=== PATIENT | female | born 1935 | race Caucasian/White ===

== ENCOUNTER 2021-08-06 10:49 | Day surgery (SDC) | payer MEDICARE ==
[~2021-08-06] VITALS: Ht 157.5 cm; Wt 74.7 kg
[2021-08-06] VITALS (12 sets, daily range): BP systolic 129–176; BP diastolic 49–86
[~2021-08-06 10:49] MED LIST: FISH OIL; FLAX OIL; IBUP-24 PO; METOPROLOL; MOVE FREE; MULTIVIT; VIT E
[2021-08-06] MEDS ORDERED: nitroGLYCERIN 0.4mg SUBLingual tab SL PRN ×2 (11:20→14:10)
[2021-08-06] MEDS ORDERED: LORazepam 0.5 MG tablet PO PRN (11:20)
[2021-08-06] MEDS ORDERED: diphenhydrAMINE 25mg capsule PO PRN (11:20)
[2021-08-06] MEDS ORDERED: ASPI-611 PO (11:28)
[2021-08-06] MEDS ORDERED: MULT-1085 PO (11:28)
[2021-08-06] MEDS ORDERED: METO-395 PO (11:29)
[2021-08-06] MEDS ORDERED: FEXO-25 PO (11:30)
[2021-08-06] MEDS ORDERED: OSC500T PO (11:31)
[2021-08-06] MEDS ORDERED: PREDNISONE 20 MG PO (11:37)
[2021-08-06 11:48] LABS: BASOPHILS % (AUTO) 0.2 % (0-1); EOSINOPHILS % (AUTO) 0 % (0-6); HEMATOCRIT 39.1 % (35.0-45.0); HEMOGLOBIN 13.6 g/dl (12.0-16.0); LYMPHOCYTES # (AUTO) 0.9 X10'3 (1.1-4.8); LYMPHOCYTES % (AUTO) 7.6 % (21-51); MEAN CORPUSCULAR HEMOGLOBIN 32.9 PG (27.0-31.0); MEAN CORPUSCULAR HGB CONC 34.9 g/dL (33.0-36.5); MEAN CORPUSCULAR VOLUME 94.3 FL (78-98); MEAN PLATELET VOLUME 9.4 FL (7.4-10.4); MONOCYTES # (AUTO) 0.4 X10'3 (0-0.9); MONOCYTES % (AUTO) 3.3 % (2-12); NEUTROPHILS # (AUTO) 10.8 X10'3 (1.8-7.7); NEUTROPHILS % (AUTO) 88.9 % (42-75); PLATELET COUNT 206 X10'3 (140-440); RED BLOOD COUNT 4.15 X10'6 (4.20-5.60); RED CELL DISTRIBUTION WIDTH 12.2 % (11.5-14.5); WHITE BLOOD COUNT 12.1 X10'3 (4.5-11.0)
[2021-08-06 12:01] LABS: ALBUMIN 3.4 G/DL (3.4-5.0); ANION GAP 13 (8-16); BLOOD UREA NITROGEN 19 MG/DL (7-18); BUN/CREATININE RATIO 18.1 (6.6-38.0); CHLORIDE 104 MMOL/L (99-107); CREATININE 1.05 MG/DL (0.40-0.90); GLUCOSE 145 MG/DL (70-104); POTASSIUM 4.1 MMOL/L (3.5-5.1); SODIUM 139 MMOL/L (135-145); TOTAL CARBON DIOXIDE 22.5 MMOL/L (24-32); eGFR 50 ML/MIN
[2021-08-06 12:02] LABS: PARTIAL THROMBOPLASTIN TIME 23 SECONDS (22-32)
[2021-08-06] MEDS ORDERED: midazolam 1 mg/ML 2ml injection ONE (12:29)
[2021-08-06] MEDS ORDERED: fentaNYL/PF 50MCG/1 ML 2ML syringe ONE (12:30)
[2021-08-06] MEDS ORDERED: iohexol 350 MG/ML 50ML vial IV ONE ×3 (12:30→13:31)
[2021-08-06] MEDS ORDERED: LIDOcaine 1% (10mg/ml)w/preservative injection 20ml MDV ONE (12:30)
[2021-08-06] MEDS ORDERED: iohexol 350MG/ML 100ml bottle IV ONE (12:30)
[2021-08-06] MEDS ORDERED: methylPREDNISolone sod succ 125mg/2ml vial IV ONE (13:00)
[2021-08-06] MEDS ORDERED: normal saline 1000ml 1,000 ML IV SCH (14:10)
[2021-08-06] MEDS ORDERED: HYDROcodone/acetaminophen 5mg/325mg tablet PO PRN (14:10)
[2021-08-06] MEDS ORDERED: HYDROcodone/acetaminophen 10/325mg tab PO PRN (14:10)
[2021-08-06] MEDS ORDERED: proCHLORperazine 10 MG/2 ml inj IV PRN (14:10)
[2021-08-06] MEDS ORDERED: OXAZEpam 15mg capsule PO PRN (14:10)
[2021-08-06] MEDS ORDERED: ondansetron/PF 4mg/2ml inj IV PRN (14:10)
== END 2021-08-06 20:25 | disposition home or self-care (01) ==
LOC: SSTAY O 10:49
PROVIDERS: ATTEND Internal Medicine Cardiovascular Disease
DX: R94.39 Abnormal result of other cardiovascular function study (principal); I25.810 Atherosclerosis of coronary artery bypass graft(s) without angina pectoris; I25.82 Chronic total occlusion of coronary artery; I10 Essential (primary) hypertension; E78.5 Hyperlipidemia, unspecified; J44.9 Chronic obstructive pulmonary disease, unspecified; K21.9 Gastro-esophageal reflux disease without esophagitis; Z87.891 Personal history of nicotine dependence; Z79.82 Long term (current) use of aspirin; Z79.899 Other long term (current) drug therapy; Z79.01 Long term (current) use of anticoagulants; Z91.013 Allergy to seafood; Z88.2 Allergy status to sulfonamides; Z91.012 Allergy to eggs
CPT/HCPCS: 36415; 71046; 80048; 85025; 85610; 85730; 93005; 93459; 99152; 99153; C1760; C1769; J1644; J2001; J2250; J2930; J3010; Q0163; Q9967; 75630; 93458; A4620; A6258

== ENCOUNTER 2022-05-18 08:52 | Inpatient (IN) | payer MEDICARE ==
[2022-05-13 16:42] LABS: BASOPHILS % (AUTO) 0.6 % (0-1); EOSINOPHILS # (AUTO) 0.2 X10'3 (0-0.9); EOSINOPHILS % (AUTO) 3.3 % (0-6); LYMPHOCYTES # (AUTO) 1.9 X10'3 (1.1-4.8); MEAN CORPUSCULAR HEMOGLOBIN 32.9 PG (27.0-31.0); MEAN CORPUSCULAR HGB CONC 33.9 g/dL (33.0-36.5); MEAN CORPUSCULAR VOLUME 96.8 FL (78-98); MEAN PLATELET VOLUME 8.4 FL (7.4-10.4); MONOCYTES # (AUTO) 0.7 X10'3 (0-0.9); MONOCYTES % (AUTO) 10.3 % (2-12); NEUTROPHILS % (AUTO) 57.8 % (42-75); PRE OP HEMATOCRIT 40.4 % (35.0-45.0); PRE OP HEMOGLOBIN 13.7 g/dL (12.0-16.0); PRE OP PLATELET COUNT 229 X10'3 (140-440); RED BLOOD COUNT 4.17 X10'6 (4.20-5.60); RED CELL DISTRIBUTION WIDTH 13.5 % (11.5-14.5)
[2022-05-13 16:58] LABS: ALBUMIN 3.8 G/DL (3.4-5.0); BLOOD UREA NITROGEN 24 MG/DL (7-18); BUN/CREATININE RATIO 28.9 (6.6-38.0); CHLORIDE 100 MMOL/L (99-107); CREATININE 0.83 MG/DL (0.40-0.90); PRE OP ALT 48 U/L (30-65); PRE OP ANION GAP 13 (8-16); PRE OP AST 33 U/L (10-37); PRE OP BILIRUB, TOTAL 0.5 MG/DL (0.0-1.0); PRE OP GLUCOSE 116 MG/DL (70-104); PRE OP POTASSIUM 4.2 MMOL/L (3.4-5.1); PRE OP SODIUM 138 MMOL/L (135-145); TOTAL CARBON DIOXIDE 24.7 MMOL/L (24-32); TOTAL PROTEIN 7.6 G/DL (6.4-8.2); eGFR 65 ML/MIN
[2022-05-13 16:59] LABS: ALKALINE PHOSPHATASE 50 IU/L (46-116)
[2022-05-13 17:00] LABS: PRE OP PROTIME 10.3 SECONDS (9.0-12.0)
[2022-05-18] VITALS (23 sets, daily range): BP systolic 121–169; BP diastolic 51–88
[~2022-05-18] VITALS: Ht 157.5 cm; Wt 69.2 kg
[~2022-05-18 08:52] MED LIST changes: +ACET-1025 PO; +ASCO-283 PO; +ASPI-611 PO; +CLOP75TA34 PO; +DOCUMENT DATE & TIME OF BETA-BLOCKER PO ONE; +FEXO-25 PO; -FISH OIL; -FLAX OIL; -IBUP-24 PO; +METO-395 PO; -METOPROLOL; -MOVE FREE; +MULT-1085 PO; -MULTIVIT; +OSC500T PO; +ROSU10TA28 PO; -VIT E; +ceFAZolin inj. 2,000 MG in dextrose 5%-water 100 ML IV ONE; +famotidine 20mg tablet PO ONE; +ringers solution, lacted 1,000 ML IV SCH; +tranexamic acid inj. 1,000 MG in normal saline 100ml IV soln 90 ML IV ONE; +vancomycin/NS 1 GM in NS 250 ML IV ONE
[2022-05-18] MEDS ORDERED: ketorolac trometh. 30mg/ml inj. ONE (10:50)
[2022-05-18] MEDS ORDERED: ROPIVAcaine 0.5% (5mg/ml) 30ml vial ONE ×3 (10:51→13:41)
[2022-05-18] MEDS ORDERED: cloNIDine hcl/PF 100mcg/ml inj ONE (10:51)
[2022-05-18] MEDS ORDERED: fentaNYL/PF 50MCG/1 ML 2ML syringe ONE ×2 (10:57→12:15)
[2022-05-18] MEDS ORDERED: vancomycin 1,000mg inj ONE (11:10)
[2022-05-18] MEDS ORDERED: sevoflurane 250ml liquid IH ONE (11:34)
[2022-05-18] MEDS ORDERED: morphine 2 MG/ML inj. syringe IV PRN (12:35)
[2022-05-18] MEDS ORDERED: ondansetron/PF 4mg/2ml inj IV PRN ×2 (12:35→14:40)
[2022-05-18] MEDS ORDERED: HYDROmorphone/PF 0.2 MG/ML SYRINGE IV PRN ×2 (12:35)
[2022-05-18] MEDS ORDERED: ringers solution, lacted 1,000 ML IV SCH (12:35)
[2022-05-18] MEDS ORDERED: neostigmine methylsulfate 1 MG/ML 10ml vial ONE (12:59)
[2022-05-18] MEDS ORDERED: ePHEDrine 50MG/ML INJ. ONE (12:59)
[2022-05-18] MEDS ORDERED: ROPIVAcaine 0.5% (5mg/ml) 30ml vial IJ ONE (12:59)
[2022-05-18] MEDS ORDERED: acetaminophen 1,000mg/100ml IV 100 ML IV ONE (12:59)
[2022-05-18] MEDS ORDERED: LIDOcaine 1%/PF 5ML 10 MG/ML VIAL ONE (12:59)
[2022-05-18] MEDS ORDERED: propofol inj 20 ML IV ONE (12:59)
[2022-05-18] MEDS ORDERED: ondansetron/PF 4mg/2ml inj ONE (12:59)
[2022-05-18] MEDS ORDERED: rocuronium 10mg/ml inj IV ONE ×2 (12:59)
[2022-05-18] MEDS ORDERED: glycopyrrolate 0.2mg/ml inj ONE (12:59)
[2022-05-18] MEDS ORDERED: cloNIDine hcl/PF 100mcg/ml inj IJ ONE (13:00)
[2022-05-18] MEDS ORDERED: labetalol 20mg/4ml (5mg/ml) syringe IV ONE (13:40)
[2022-05-18] MEDS ORDERED: dexamethasone sod phosphate 4mg/ml inj. ONE (13:41)
--- NOTE | 2022-05-18 14:32 | NUR ---
Received from OR via , accompanied by Anesthesiologist DR SOUZA and report given by Anesthesiolgist. MARISA. LMA. ON MASK AT 10 LITERS 20 G IV LEFT FOREARM. LEFT KNEE WRAP WITH POWDER PACK. Addendum: 05/18/22 at 1459 by Rowan Bella RN Amended: Links added. Addendum: 05/18/22 at 1514 by Rowan Bella RN PATIENT ALSO HAS DANIELLA DEVICE UNDER WRAP
[2022-05-18] MEDS ORDERED: diphenhydrAMINE 25mg capsule PO PRN ×2 (14:40)
[2022-05-18] MEDS ORDERED: naloxone 0.4 mg/ml inj IV PRN (14:40)
[2022-05-18] MEDS ORDERED: bisacodyl 10mg suppository rectal RC PRN (14:40)
[2022-05-18] MEDS ORDERED: magnesium hydroxide 30ml (MOM) UD suspension PO PRN (14:40)
[2022-05-18] MEDS ORDERED: acetaminophen 325mg tablet PO PRN (14:40)
--- NOTE | 2022-05-18 18:54 | NUR ---
Problems reprioritized. Patient report given, questions answered & plan of care reviewed with Brittany CALHOUN.
[2022-05-18] MEDS: ceFAZolin/D5W- 1GM premix 50 ML IV SCH (19:21)
[2022-05-18] MEDS: potassium Cl 20mEq in NS 1,000 ML IV SCH (20:37)
[2022-05-18] MEDS: sennosides 8.6mg tablet PO SCH (21:00)
[2022-05-18] MEDS ORDERED: vancomycin/NS 1 GM ADD-VANTAGE 250 ML IV ONE (23:00)
[2022-05-19] MEDS: ceFAZolin/D5W- 1GM premix 50 ML IV SCH
[2022-05-19 02:00] VITALS: BP 108/61
[2022-05-19] MEDS: potassium Cl 20mEq in NS 1,000 ML IV SCH ×2 (04:00→17:20)
[2022-05-19] MEDS: HYDROcodone/acetaminophen 10/325mg tab PO PRN ×2 (05:39→21:14)
[2022-05-19 06:00] VITALS: BP 110/51
[2022-05-19 06:23] LABS: BASOPHILS % (AUTO) 0 % (0-1); EOSINOPHILS % (AUTO) 0 % (0-6); HEMOGLOBIN 10.6 g/dl (12.0-16.0); LYMPHOCYTES % (AUTO) 7.2 % (21-51); MEAN CORPUSCULAR HEMOGLOBIN 33.1 PG (27.0-31.0); MEAN CORPUSCULAR HGB CONC 34.3 g/dL (33.0-36.5); MEAN CORPUSCULAR VOLUME 96.7 FL (78-98); MEAN PLATELET VOLUME 8.5 FL (7.4-10.4); MONOCYTES # (AUTO) 0.7 X10'3 (0-0.9); MONOCYTES % (AUTO) 5.1 % (2-12); NEUTROPHILS # (AUTO) 12.1 X10'3 (1.8-7.7); NEUTROPHILS % (AUTO) 87.7 % (42-75); PLATELET COUNT 192 X10'3 (140-440); RED BLOOD COUNT 3.21 X10'6 (4.20-5.60); RED CELL DISTRIBUTION WIDTH 12.9 % (11.5-14.5); WHITE BLOOD COUNT 13.8 X10'3 (4.5-11.0)
[2022-05-19 06:34] LABS: ALANINE AMINOTRANSFERASE 30 U/L (12-78); ALBUMIN 2.9 G/DL (3.4-5.0); ALBUMIN/GLOBULIN RATIO 0.9 (1.1-1.5); ALKALINE PHOSPHATASE 35 IU/L (46-116); ANION GAP 11 (8-16); ASPARTATE AMINO TRANSFERASE 23 U/L (10-37); BILIRUBIN,TOTAL 0.5 MG/DL (0.1-1.0); BLOOD UREA NITROGEN 15 MG/DL (7-18); BUN/CREATININE RATIO 16.7 (6.6-38.0); CHLORIDE 104 MMOL/L (99-107); GLUCOSE 142 MG/DL (70-104); POTASSIUM 4.7 MMOL/L (3.5-5.1); SODIUM 137 MMOL/L (135-145); TOTAL CARBON DIOXIDE 22.4 MMOL/L (24-32); eGFR 59 ML/MIN
[2022-05-19] MEDS: clopidogrel 75mg tablet PO SCH (08:06)
[2022-05-19] MEDS: HYDROmorphone inj. 0.5 MG/0.5 ML DISP.SYRIN IV PRN ×2 (08:06→13:44)
[2022-05-19] MEDS: aspirin 81mg, enteric-coated 1 TAB TABLET.DR PO SCH (08:06)
[2022-05-19 10:00] VITALS: BP 104/56
--- NOTE | 2022-05-19 13:06 | NUR ---
Noted pt s/p left TKA. Written protein education with RD contact information placed in patient's chart. Will remain available. Addendum: 05/19/22 at [address] Amended: Links added.
--- NOTE | 2022-05-19 16:07 | NUR ---
Patient very anxious, doctor in to see patient new orders for pain medication. Educated patient on plan of care, needs to be reoriented again. Dilaudid makes patient sleepy.
[2022-05-19 18:21] VITALS: BP 147/45
--- NOTE | 2022-05-19 18:34 | NUR ---
Problems reprioritized. Patient report given, questions answered & plan of care reviewed with Brittany CALHOUN.
[2022-05-19] MEDS: sennosides 8.6mg tablet PO SCH (21:13)
[2022-05-19 22:00] VITALS: BP 136/49
[2022-05-20] MEDS: HYDROcodone/acetaminophen 10/325mg tab PO PRN ×2 (05:37→13:06)
[2022-05-20 06:00] VITALS: BP 126/52
[2022-05-20 06:13] LABS: BASOPHILS % (AUTO) 0.1 % (0-1); EOSINOPHILS % (AUTO) 0.1 % (0-6); HEMATOCRIT 26.4 % (35.0-45.0); LYMPHOCYTES # (AUTO) 2.3 X10'3 (1.1-4.8); LYMPHOCYTES % (AUTO) 20.9 % (21-51); MEAN CORPUSCULAR HEMOGLOBIN 33.2 PG (27.0-31.0); MEAN CORPUSCULAR HGB CONC 34.2 g/dL (33.0-36.5); MEAN CORPUSCULAR VOLUME 96.9 FL (78-98); MEAN PLATELET VOLUME 8.7 FL (7.4-10.4); MONOCYTES # (AUTO) 1.6 X10'3 (0-0.9); MONOCYTES % (AUTO) 14.5 % (2-12); NEUTROPHILS % (AUTO) 64.4 % (42-75); PLATELET COUNT 157 X10'3 (140-440); RED BLOOD COUNT 2.73 X10'6 (4.20-5.60); RED CELL DISTRIBUTION WIDTH 13.3 % (11.5-14.5); WHITE BLOOD COUNT 10.8 X10'3 (4.5-11.0)
[2022-05-20 06:22] LABS: ALANINE AMINOTRANSFERASE 23 U/L (12-78); ALBUMIN 2.8 G/DL (3.4-5.0); ALBUMIN/GLOBULIN RATIO 0.9 (1.1-1.5); ALKALINE PHOSPHATASE 36 IU/L (46-116); ANION GAP 7 (8-16); ASPARTATE AMINO TRANSFERASE 20 U/L (10-37); BILIRUBIN,TOTAL 0.3 MG/DL (0.1-1.0); BLOOD UREA NITROGEN 20 MG/DL (7-18); BUN/CREATININE RATIO 23.8 (6.6-38.0); CALCIUM 8.2 MG/DL (8.5-10.1); CHLORIDE 105 MMOL/L (99-107); CREATININE 0.84 MG/DL (0.40-0.90); GLUCOSE 119 MG/DL (70-104); POTASSIUM 4.3 MMOL/L (3.5-5.1); SODIUM 138 MMOL/L (135-145); TOTAL CARBON DIOXIDE 25.6 MMOL/L (24-32); TOTAL PROTEIN 5.8 G/DL (6.4-8.2); eGFR 64 ML/MIN
--- NOTE | 2022-05-20 06:31 | NUR ---
Patient in room ORTHO 4011. I have received report from UNIQUE Soto and had the opportunity to ask questions and assume patient care.
[2022-05-20] MEDS: clopidogrel 75mg tablet PO SCH (07:13)
[2022-05-20] MEDS: aspirin 81mg, enteric-coated 1 TAB TABLET.DR PO SCH (07:14)
--- NOTE | 2022-05-20 15:12 | NUR ---
I have reviewed and agree with all interventions, assessments performed and documented by SHUN GARCIA.
--- NOTE | 2022-05-20 18:09 | NUR ---
Problems reprioritized. Patient report given, questions answered & plan of care reviewed with UNIQUE Soto.
[2022-05-20 18:26] VITALS: BP 128/53
[2022-05-20] MEDS: sennosides 8.6mg tablet PO SCH (21:00)
[2022-05-20 22:45] VITALS: BP 125/48
[2022-05-21] MEDS: HYDROcodone/acetaminophen 10/325mg tab PO PRN ×4 (03:17→21:24)
[2022-05-21 06:00] VITALS: BP 162/55
[2022-05-21 06:24] LABS: BASOPHILS % (AUTO) 0.4 % (0-1); EOSINOPHILS # (AUTO) 0.1 X10'3 (0-0.9); EOSINOPHILS % (AUTO) 0.8 % (0-6); HEMATOCRIT 26.7 % (35.0-45.0); HEMOGLOBIN 9.2 g/dl (12.0-16.0); LYMPHOCYTES # (AUTO) 2.6 X10'3 (1.1-4.8); LYMPHOCYTES % (AUTO) 22.4 % (21-51); MEAN CORPUSCULAR HEMOGLOBIN 33.5 PG (27.0-31.0); MEAN CORPUSCULAR HGB CONC 34.4 g/dL (33.0-36.5); MEAN CORPUSCULAR VOLUME 97.3 FL (78-98); MEAN PLATELET VOLUME 8.9 FL (7.4-10.4); MONOCYTES # (AUTO) 1.7 X10'3 (0-0.9); MONOCYTES % (AUTO) 14.5 % (2-12); NEUTROPHILS # (AUTO) 7.3 X10'3 (1.8-7.7); NEUTROPHILS % (AUTO) 61.9 % (42-75); PLATELET COUNT 163 X10'3 (140-440); RED BLOOD COUNT 2.74 X10'6 (4.20-5.60); RED CELL DISTRIBUTION WIDTH 13.7 % (11.5-14.5); WHITE BLOOD COUNT 11.7 X10'3 (4.5-11.0)
[2022-05-21 06:59] LABS: ALANINE AMINOTRANSFERASE 22 U/L (12-78); ALBUMIN 2.7 G/DL (3.4-5.0); ALBUMIN/GLOBULIN RATIO 0.8 (1.1-1.5); ALKALINE PHOSPHATASE 37 IU/L (46-116); ANION GAP 7 (8-16); ASPARTATE AMINO TRANSFERASE 23 U/L (10-37); BILIRUBIN,TOTAL 0.6 MG/DL (0.1-1.0); BLOOD UREA NITROGEN 17 MG/DL (7-18); CALCIUM 8.1 MG/DL (8.5-10.1); CHLORIDE 102 MMOL/L (99-107); CREATININE 0.74 MG/DL (0.40-0.90); GLUCOSE 108 MG/DL (70-104); POTASSIUM 4.1 MMOL/L (3.5-5.1); SODIUM 134 MMOL/L (135-145); TOTAL CARBON DIOXIDE 25.2 MMOL/L (24-32); TOTAL PROTEIN 5.9 G/DL (6.4-8.2); eGFR 74 ML/MIN
[2022-05-21] MEDS: clopidogrel 75mg tablet PO SCH (08:18)
[2022-05-21] MEDS: aspirin 81mg, enteric-coated 1 TAB TABLET.DR PO SCH (08:18)
[2022-05-21 09:42] VITALS: BP 119/60
[2022-05-21 18:00] VITALS: BP 160/51
--- NOTE | 2022-05-21 18:20 | NUR ---
Patient in room ORTHO 4011. I have received report from UNIQUE Gibson and had the opportunity to ask questions and assume patient care.
[2022-05-21] MEDS: sennosides 8.6mg tablet PO SCH (21:23)
[2022-05-21 22:00] VITALS: BP 146/57
[2022-05-22] MEDS: HYDROcodone/acetaminophen 10/325mg tab PO PRN ×2 (03:50→13:24)
[2022-05-22 06:00] VITALS: BP 131/56
--- NOTE | 2022-05-22 06:23 | NUR ---
Patient in room ORTHO 4011. I have received report from UNIQUE Bartlett and had the opportunity to ask questions and assume patient care.
--- NOTE | 2022-05-22 06:48 | NUR ---
Problems reprioritized. Patient report given, questions answered & plan of care reviewed with UNIQUE Montano.
[2022-05-22] MEDS: clopidogrel 75mg tablet PO SCH (07:19)
[2022-05-22] MEDS: aspirin 81mg, enteric-coated 1 TAB TABLET.DR PO SCH (07:19)
[2022-05-22 10:00] VITALS: BP 121/53
--- NOTE | 2022-05-22 14:48 | NUR ---
Patient was discharged at 1401 going to [facility] via [facility]. All lines and tubes including PIV have been removed. All patient belongings have been sent with the patient. Report has been called to the receiving facility.
== END 2022-05-22 13:55 | DRG 470 ==
LOC: PAS 08:52 → ORTHO 4S 14:42
PROVIDERS: ADMIT Orthopaedic Surgery; ATTEND Orthopaedic Surgery
PROC: 3E0T3BZ Introduction of Anesthetic Agent into Peripheral Nerves and Plexi, Percutaneous Approach (ICD-10-PCS; 2022-05-18)
PROC: 0SRD0J9 Replacement of Left Knee Joint with Synthetic Substitute, Cemented, Open Approach (ICD-10-PCS; principal; 2022-05-18 11:34)
DX: M17.12 Unilateral primary osteoarthritis, left knee (principal); Z20.822 Contact with and (suspected) exposure to COVID-19
CPT/HCPCS: 36415; 80053; 82948; 85025; 85610; 85730; 86885; 86900; 86901; 86920; 87081; 87635; 87811; 97110; 97116; 97161; 97530; A4615; A4618; A6455; A7000; A9272; C1713; C1758; C1776; G0378; J0131; J0690; J0735; J1100; J1170; J1885; J2405; J2704; J2710; J2795; J3010; J3370; J3480; J3490; J7060; J7120